=== PATIENT | male | born 1960 | race Caucasian/White ===

== ENCOUNTER 2017-12-11 22:50 | Emergency (ER) ==
[2017-12-11 22:59] VITALS: BP 128/81; TEMP 97.3; BMI 33.5
[2017-12-11] MEDS ORDERED: BENADRYL IM STA (23:26)
[2017-12-11] MEDS ORDERED: SOLU-MEDROL 125 MG IM STA (23:26)
--- NOTE | 2017-12-12 00:34 | ED.PDOC ---
General ED Provider: Dr. DINA LYNNE Chief Complaint: Eye Problem Stated Complaint: Patient is a 57 year old male who comes to the Er after he had been [place]. He notice that his eye and forehead wear swollen. Denies any respiratory symtoms. Time Seen by Physician: 00:31 Mode of Arrival: Walk-In Information Source: Patient Exam Limitations: No limitations Nursing and Triage Documentation Reviewed and Agree: Yes Reviewed sepsis parameters & appropriate labs ordered?: No System Inflammatory Response Syndrome: Not Applicable Sepsis Protocol: For patient's 13 years and over: Temp is 96.8 and below OR 101 and greater Pulse >90 BPM Resp >20/minute Acutely Altered Mental Status Are patient's symptoms suggestive of a new infection, such as: -Pneumonia -Skin, Soft Tissue -Endocarditis -UTI -Bone, Joint Infection -Implantable Device -Acute Abdominal Infection -Wound Infection -Meningitis -Blood Stream Catheter Infection -Unknown Review of Systems - Review Of Systems Constitutional: Reports: No symptoms Eyes: Reports: Other (swelling ) Skin: Reports: Other (Periobital swelling ) Neurological: Reports: Anxiety All Other Systems: Reviewed and Negative Past Medical History - Past Medical History Previously Healthy: Yes Endocrine: Reports: None Cardiovascular: Reports: None Respiratory: Reports: Asthma Hematological: Reports: None Gastrointestinal: Reports: None Genitourinary: Reports: None Neuro/Psych: Reports: None Musculoskeletal: Reports: None Cancer: Reports: None - Surgical History General Surgical History: Reports: None - Family History Family History: Reports: None - Social History Smoking Status: Never smoker Hx Substance Use: No Alcohol Screening: Occasionally - Immunizations Tetanus Shot up to Date: Yes Physical Exam - Physical Exam Appearance: Ill-appearing, Obese Ill-appearing: Mild Eyes: Conjunctiva clear (mild periobital Edema) ENT: Ears normal, Nose normal Respiratory: Airway patent, Breath sounds clear, Breath sounds equal, Respirations nonlabored Cardiovascular: Pulses normal, No rub, No murmur, Bradycardia GI/: Soft, Nontender, No masses, Bowel sounds normal, No Organomegaly Musculoskeletal: Normal strength, ROM intact, No edema, No calf tenderness Skin: Warm, Dry, Normal color Neurological: Sensation intact, Motor intact, Reflexes intact, Cranial nerves intact, Alert, Oriented Psychiatric: Anxious Critical Care Note - Critical Care Note Total Time (mins): 0 Course - Course Orders, Labs, Meds: Orders Category Date Time Status Diphenhydramine Inj [Benadryl] MEDS 12/11/17 23:26 Discontinued 25 mg IM ONCE STA Methylprednisolone Sod Succ/Pf [Solu-Medrol 125 mg] MEDS 12/11/17 23:26 Discontinued 125 mg IM ONCE STA Medications Discontinued Medications Generic Name Dose Route Start Last Admin Trade Name Freq PRN Reason Stop Dose Admin Diphenhydramine HCl 25 mg 12/11/17 23:26 12/12/17 00:26 Benadryl IM 12/11/17 23:27 25 mg ONCE STA Administration Methylprednisolone Sodium Succinate 125 mg 12/11/17 23:26 12/12/17 00:27 Solu-Medrol 125 Mg IM 12/11/17 23:27 125 mg ONCE STA Administration Vital Signs: Temp Pulse Resp BP Pulse Ox 12/11/17 22:50 97.3 F L 55 L 18 128/81 96 Departure - Departure Time of Disposition: 00:39 Disposition: HOME SELF-CARE Discharge Problem: Periorbital edema Instructions: Allergies (ED) Condition: Stable Pt referred to PMD for follow-up: Yes IPMP verified?: No Additional Instructions: Take medications as prescribed. Follow up with PCP in 3 days Take over the counter Benadryl and Claritin. Return if worse. Prescriptions: Epinephrine [Epipen Twinpak] 0.3 mg IM PRN PRN #1 [email or web address] PRN Reason: Anaphylaxis Methylprednisolone [Medrol Dosepak] 4 mg PO DIRECTED #1 pkg Allergies/Adverse Reactions: Allergies bee venom protein (honey bee) Adverse Reaction (Verified 12/11/17 22:56) HIVES/SWELLING Home Medications: Ambulatory Orders Epinephrine [Epipen Twinpak] 0.3 mg IM PRN PRN #1 pen.[email or web address] 12/12/17 Methylprednisolone [Medrol Dosepak] 4 mg PO DIRECTED #1 pkg 12/12/17 Disposition Discussed With: Patient
== END 2017-12-12 00:48 | disposition home or self-care (01) ==
LOC: ED 22:50
DX: H05.229 Edema of unspecified orbit (principal)
CPT/HCPCS: 96372; 99282